=== PATIENT | male | born 1970 | race American Indian/Alaskan Native ===

== ENCOUNTER 2018-11-07 22:22 | Emergency (ER) | payer MEDICAID ==
[2018-11-07] MEDS ORDERED: Albuterol 6.7 GM Inhaler INH ONE (22:23)
[2018-11-07 23:06] LABS: ANION GAP 24.4; CHLORIDE,CL 103 mmol/L (101-111); SODIUM,NA 135 mmol/L (135-145)
[2018-11-07] MEDS ORDERED: Albuterol 0.083% 2.5 MG/3 ML Neb Soln NEB ONE (23:40)
[2018-11-08] MEDS ORDERED: Albuterol 6.7 GM Inhaler INH ONE (00:34)
--- NOTE | 2018-11-08 00:34 | EDM.PDOC ---
ED HPI GENERAL MEDICAL PROBLEM - General Chief Complaint: Respiratory Problem Stated Complaint: SOB [id number] Time Seen by Provider: 11/07/18 22:35 Source of Information: Reports: Patient History Limitations: Reports: No Limitations - History of Present Illness INITIAL COMMENTS - FREE TEXT/NARRATIVE: ED with c/o wheezing and cough. Hx of asthma and ran out of albuterol inhaler. No fever. No GI sx. Chest Pain Score (Numeric/FACES): 6 - Related Data Allergies Allergy/AdvReac Type Severity Reaction Status Date / Time No Known Allergies Allergy Verified 11/07/18 22:41 Home Meds: Home Meds Gabapentin [Neurontin] 900 mg PO TID 11/07/18 [History] Ranitidine [Zantac] 150 mg PO DAILY 11/07/18 [History] Past Medical History Gastrointestinal History: Reports: GERD Neurological History: Reports: Seizure Psychiatric History: Reports: Anxiety Social & Family History - Tobacco Use Smoking Status *Q: Current Every Day Smoker Years of Tobacco use: 25 Packs/Tins Daily: 2 - Caffeine Use Caffeine Use: Reports: Coffee - Recreational Drug Use Recreational Drug Use: No ED ROS GENERAL - Review of Systems Review Of Systems: ROS reveals no pertinent complaints other than HPI. ED EXAM, GENERAL - Physical Exam Exam: See Below Exam Limited By: No Limitations General Appearance: Alert, No Apparent Distress Eye Exam: Bilateral Eye: EOMI, PERRL Ears: Normal External Exam, Normal TMs Nose: Normal Inspection Throat/Mouth: Normal Inspection Head: Atraumatic, Normocephalic Neck: Normal Inspection Respiratory/Chest: No Respiratory Distress, Lungs Clear, Wheezing (intermittent wheeze, clears with cough) Cardiovascular: Normal Peripheral Pulses, Regular Rate, Rhythm GI/Abdominal: Normal Bowel Sounds Extremities: Normal Inspection Psychiatric: Normal Affect, Normal Mood Skin Exam: Warm, Dry, Intact, Normal Color Course - Vital Signs Last Recorded V/S: Last Vital Signs Temp 97.6 F 11/07/18 22:27 Pulse 100 11/07/18 22:27 Resp 16 11/07/18 22:27 BP 141/85 H 11/07/18 22:27 Pulse Ox 100 11/07/18 22:27 - Orders/Labs/Meds Labs: Laboratory Tests 11/07/18 11/07/18 11/07/18 Range/Units 22:37 22:37 22:37 WBC 15.0 H (5.0-10.0) 10^3/uL RBC 4.50 L (4.6-6.2) 10^6/uL Hgb 13.7 L (14.0-18.0) g/dL Hct 39.9 L (40.0-54.0) % MCV 88.7 (80-100) fL MCH 30.4 (27.0-34.0) pg MCHC 34.3 (33.0-35.0) g/dL Plt Count 301 (150-450) 10^3/uL Neut % (Auto) 82.1 H (42.2-75.2) % Lymph % (Auto) 9.6 L (20.5-50.1) % [place] % (Auto) 7.5 (2-8) % Eos % (Auto) 0.3 L (1.0-3.0) % Baso % (Auto) 0.5 (0.0-1.0) % Sodium 135 (135-145) mmol/L Potassium 4.4 (3.6-5.0) mmol/L Chloride 103 (101-111) mmol/L Carbon Dioxide 12.0 L (21.0-31.0) mmol/L Anion Gap 24.4 BUN 36 H (7-18) mg/dL Creatinine 1.2 (0.6-1.3) mg/dL Est Cr Clr Drug Dosing 63.72 mL/min Estimated GFR (MDRD) > 60 BUN/Creatinine Ratio 30.00 Glucose 87 (74-105) mg/dL Calcium 9.2 (8.4-10.2) mg/dl Total Bilirubin 1.7 H (0.2-1.0) mg/dL AST 168 H (10-42) IU/L ALT 72 H (10-60) IU/L Alkaline Phosphatase 78 (42-121) IU/L Troponin I < 0.02 (0.00-0.02) ng/ml B-Natriuretic Peptide 64 (0-100) pg/ml Total Protein 8.2 (6.7-8.2) g/dl Albumin 4.6 (3.2-5.5) g/dl Globulin 3.6 Albumin/Globulin Ratio 1.28 Amylase 17 L (28-100) U/L Lipase 19 L (22-51) U/L Meds: Medications Discontinued Medications Generic Name Dose Route Start Last Admin Trade Name Rhys PRN Reason Stop Dose Admin Albuterol 2.5 mg 11/07/18 23:40 11/07/18 23:50 Proventil Neb Soln NEB 11/07/18 23:41 2.5 mg ONETIME ONE Administration Albuterol Confirm 11/08/18 00:34 Proventil Hfa Administered 11/08/18 00:35 Dose 6.7 gm INH .STK-MED ONE Albuterol 0 gm 11/07/18 22:23 Proventil Hfa INH 11/07/18 22:24 .STK-MED ONE Departure - Departure Time of Disposition: 00:30 Disposition: Home, Self-Care 01 Condition: Good Clinical Impression: Bronchitis Pharyngitis Qualifiers: Pharyngitis/tonsillitis etiology: unspecified etiology Qualified Code(s): J02.9 - Acute pharyngitis, unspecified - Discharge Information *PRESCRIPTION DRUG MONITORING PROGRAM REVIEWED*: No *COPY OF PRESCRIPTION DRUG MONITORING REPORT IN PATIENT SULEAM: No Instructions: Sore Throat, [id number] Forms: ED Department Discharge Additional Instructions: tylenol or ibuprofen for discomfort saltwater gargles every 2 hours as needed humidification rest stay of cold albuterol inhaler 2 puffs every 4 hours as needed for cough or wheeze urgent follow up if difficulty breathing
== END 2018-11-08 00:40 | disposition home or self-care (01) ==
LOC: DL.ED 22:22
DX: J40 Bronchitis, not specified as acute or chronic (principal); J02.9 Acute pharyngitis, unspecified; K21.9 Gastro-esophageal reflux disease without esophagitis; F17.210 Nicotine dependence, cigarettes, uncomplicated; Z79.899 Other long term (current) drug therapy
CPT/HCPCS: 36415; 71045; 80053; 82150; 83690; 83880; 84484; 85025; 87081; 87430; 87804; 93005; 99284; A9270-GY; J7613-GY